=== PATIENT | female | born 1965 | race Two or more races ===

== ENCOUNTER 2020-12-06 06:20 | Day surgery (SDC) | payer OTHER | END 2020-12-06 11:05 | disposition home or self-care (01) | LOC: AMB-ENDOS 06:20 → ADM 12-27 12:15 | PROVIDERS: ATTEND Colon & Rectal Surgery | DX: K62.89 Other specified diseases of anus and rectum (principal); K64.1 Second degree hemorrhoids; Z12.11 Encounter for screening for malignant neoplasm of colon; Z20.822 Contact with and (suspected) exposure to COVID-19 ==